=== PATIENT | female | born 1995 | race Asian ===

== ENCOUNTER 2018-12-29 13:35 | Emergency (ER) | payer BC ==
[~2018-12-29] VITALS: Ht 167.6 cm; Wt 74.8 kg
--- NOTE | 2018-12-29 13:41 | NUR ---
PT AMBULATED TO ER BED 07
[2018-12-29 13:47] VITALS: BP 77/42
--- NOTE | 2018-12-29 13:47 | NUR ---
PT BIB FAMILY C/O ALLERGIC REACTION. PT HAS ITCHY RASH OVER ARMS, LEGS, TRUNK, AND NECK. PT NREPORTS DIFFICULTY BREATHING, AIRWAY PATENT, VOICE CLEAR, RR EVEN, NON-LABORED AND BREATH SOUNDS CLEAR THROUGHOUT. PT IS HYPOTENSIVE WITH BP AT 77/42. ER MD MADE AWARE. MEDHX:DENIES RX:NYQUIL
[2018-12-29] MEDS ORDERED: methylPREDNISolone SS 125 MG/2 ML VIAL IVP ONE (13:50)
[2018-12-29] MEDS ORDERED: FAMOTIDINE 20 MG/2 ML VIAL IVP ONE (13:50)
[2018-12-29] MEDS ORDERED: EPINEPHrine PFS 0.1 MG/ML SYR IVP ONE (13:50)
[2018-12-29] MEDS ORDERED: NACL 0.9% 1,000 ML IV ONE (13:50)
[2018-12-29] MEDS ORDERED: diphenhydrAMINE 50 MG/ML VIAL IVP ONE (13:50)
[2018-12-29] MEDS ORDERED: EPINEPHrine 1:1000 - 1 MG/ML AMP IM ONE (13:55)
[2018-12-29] MEDS ORDERED: EPINEPHrine 1:1000 - 1 MG/ML AMP ONE (13:57)
--- NOTE | 2018-12-29 14:51 | NUR ---
PT RESTING IN BED, FAMILY AT BEDSIDE. VSS. AIRWAY PATENT, RR EVEN, NON-LABORED, BREATH SOUNDS CLEAR THROUGHOUT. RASH IS GONE. PT DENIES PAIN AT THIS TIME.
[2018-12-29 17:41] VITALS: BP 117/67
--- NOTE | 2018-12-29 17:41 | NUR ---
Patient discharged with v/s stable. Written and verbal after care instructions given and explained. Patient alert, oriented and verbalized understanding of instructions. Ambulatory with steady gait. All questions addressed prior to discharge. ID band removed. Patient advised to follow up with PMD. Rx of PEPCID, PREDNISONE, AND EPIPEN given. Patient educated on indication of medication including possible reaction and side effects. Opportunity to ask questions provided and answered.
== END 2018-12-29 17:41 | disposition home or self-care (01) ==
LOC: MED 13:35
DX: T88.6XXA Anaphylactic reaction due to adverse effect of correct drug or medicament properly administered, initial encounter (principal); T50.995A Adverse effect of other drugs, medicaments and biological substances, initial encounter; Z88.6 Allergy status to analgesic agent; Z88.8 Allergy status to other drugs, medicaments and biological substances; Y92.89 Other specified places as the place of occurrence of the external cause
CPT/HCPCS: 96372; 96374; 96375; 99291; J0171; J1200; J2930; J3490; J7030